=== PATIENT | female | born 1965 | race Caucasian/White ===

== ENCOUNTER 2017-01-11 13:13 | Emergency (ER) | payer SELFPAY ==
[2017-01-11] MEDS ORDERED: Dexamethasone 4 mg/ml Vial ONE (13:34)
[2017-01-11 13:45] LABS: #Basophils 0.1 thou/uL (0.0-0.2); #Eosinphils 0.2 thou/uL (0.0-0.7); #Lymphocytes 1.6 thou/uL (1.20-3.40); #Monocytes 0.5 thou/uL (0.11-0.59); #Neutrophils 4.7 thou/uL (1.40-6.50); %Eosinophils 2.8 % (0.0-10.0); %Lymphocytes 23.1 % (21.0-51.0); %Monocytes 6.9 % (0.0-10.0); %Neutrophils 66.2 % (42.0-75.0); Hemoglobin 9.2 g/dL (12.0-16.0); Mean Corpuscular HGB CONC 30.6 g/dL (32.0-36.0); Mean Corpuscular Hemoglobin 22.4 pg (27.0-31.0); Mean Corpuscular Volume 73.2 fl (81.0-99.0); Platelet Count 302 thou/uL (130-400); RBC Distribution Width 14.4 % (11.5-14.5); Red Blood Cell (RBC) Count 4.11 mill/uL (4.20-5.40); White Blood Cell (WBC) Count 7.1 thou/uL (4.8-10.8)
[2017-01-11 13:57] LABS: ALT (SGPT) 10 U/L (8-55); AST (SGOT) 13 U/L (5-34); Albumin 3.8 g/dL (3.5-5.0); Alkaline Phosphatase 60 U/L (40-150); Anion Gap 13 mmol/L (10-20); BUN (Urea Nitrogen) 6 mg/dL (7.0-18.7); Bilirubin, Total 0.3 mg/dL (0.2-1.2); Calc. Creatinine Clearance 0 mL/min (70-130); Calcium 9.2 mg/dL (7.8-10.44); Carbon Dioxide 24 mmol/L (22-29); Chloride 106 mmol/L (98-107); Estimated GFR-MDRD Greater than 90; Globulin 3.3 g/dL (2.4-3.5); Glucose 86 mg/dL (70-105); Potassium 3.9 mmol/L (3.5-5.1); Protein, Total 7.1 g/dL (6.0-8.3); Sodium 139 mmol/L (136-145)
[2017-01-11 13:59] LABS: CKMB 1.3 ng/mL (0-6.6); Troponin I Less than 0.010 ng/mL (< 0.028)
[2017-01-11 14:03] LABS: MDiff Complete? YES; Microcytosis MODERATE=15-30 cells (100X) (0-5/hpf); PLT Morphology Comment Appears Adequate
--- NOTE | 2017-01-11 21:27 | RAD ---
CHEST TWO VIEWS 01/11/17 Comparison is made with the 01/20/13 study. The heart remains normal in size and the lungs are clear. No infiltrate or effusion was seen. There is no vascular congestion or edema. The mediastinum appears normal and the trachea is midline. IMPRESSION: No acute thoracic finding. POS: HOME
== END 2017-01-11 14:19 | disposition home or self-care (01) ==
LOC: BURERS 13:13
DX: J06.9 Acute upper respiratory infection, unspecified (principal); F17.220 Nicotine dependence, chewing tobacco, uncomplicated
CPT/HCPCS: 36415; 71020; 80053; 82553; 83880; 84484; 85025; 93005; J1100; J7620

== ENCOUNTER 2020-06-04 13:11 | Emergency (ER) | payer SELFPAY | END 2020-06-04 13:42 | disposition home or self-care (01) | LOC: BURERS 13:11 | DX: R50.9 Fever, unspecified (principal); R42 Dizziness and giddiness; Z20.828 Contact with and (suspected) exposure to other viral communicable diseases; F17.220 Nicotine dependence, chewing tobacco, uncomplicated | CPT/HCPCS: 99283 ==

== ENCOUNTER 2020-12-27 23:04 | Emergency (ER) | payer SELFPAY ==
[2020-12-27 23:34] LABS: #Basophils 0.1 thou/uL (0.0-0.2); #Eosinphils 0.2 thou/uL (0.0-0.7); #Monocytes 0.5 thou/uL (0.11-0.59); #Neutrophils 3.4 thou/uL (1.40-6.50); %Basophils 0.9 % (0.0-1.0); %Eosinophils 2.2 % (0.0-10.0); %Lymphocytes 41.8 % (21.0-51.0); %Monocytes 7.6 % (0.0-10.0); %Neutrophils 47.6 % (42.0-75.0); Hemoglobin 14.6 g/dL (12.0-16.0); Mean Corpuscular HGB CONC 34.2 g/dL (32.0-36.0); Mean Corpuscular Hemoglobin 30.9 pg (27.0-31.0); Mean Corpuscular Volume 90.4 fL (78.0-98.0); Mean Platelet Volume 6.4 fL (7.4-10.4); Platelet Count 205 thou/uL (130-400); RBC Distribution Width 11.6 % (11.5-14.5); Red Blood Cell (RBC) Count 4.74 mill/uL (4.20-5.40); White Blood Cell (WBC) Count 7.1 thou/uL (4.8-10.8)
[2020-12-27 23:53] LABS: ALT (SGPT) 41 U/L (8-55); AST (SGOT) 26 U/L (5-34); Albumin 4.3 g/dL (3.5-5.0); Alkaline Phosphatase 75 U/L (40-110); Anion Gap 16 mmol/L (10-20); BUN (Urea Nitrogen) 12 mg/dL (9.8-20.1); Bilirubin, Total 0.3 mg/dL (0.2-1.2); CK (CPK) 109 U/L (29-168); Calc. Creatinine Clearance 0 mL/min (70-130); Calcium 9.3 mg/dL (7.8-10.44); Carbon Dioxide 23 mmol/L (22-29); Chloride 108 mmol/L (98-107); Glucose 108 mg/dL (70-105); Lipase 39 U/L (8-78); Potassium 3.9 mmol/L (3.5-5.1); Protein, Total 7.3 g/dL (6.0-8.3); Sodium 143 mmol/L (136-145)
[2020-12-28] MEDS ORDERED: Nitroglycerin 0.4 MG TAB 1 EACH ONE (00:39)
== END 2020-12-28 00:55 | disposition home or self-care (01) ==
LOC: BURERS 23:04
DX: R07.89 Other chest pain (principal); I10 Essential (primary) hypertension; F17.220 Nicotine dependence, chewing tobacco, uncomplicated
CPT/HCPCS: 71045; 80053; 82550; 83690; 84484; 85025; 93005

== ENCOUNTER 2021-10-11 19:06 | Emergency (ER) | payer SELFPAY ==
[2021-10-11] MEDS ORDERED: Aspirin Chewable 81 MG TAB ONE (19:19)
[2021-10-11] MEDS ORDERED: Nitroglycerin 0.4 MG TAB 1 EACH ONE ×2 (19:31)
[2021-10-11 19:33] LABS: #Basophils 0.1 thou/uL (0.0-0.2); #Eosinphils 0.1 thou/uL (0.0-0.7); #Lymphocytes 2.1 thou/uL (1.20-3.40); #Monocytes 0.5 thou/uL (0.11-0.59); #Neutrophils 3.4 thou/uL (1.40-6.50); %Basophils 1.3 % (0.0-1.0); %Eosinophils 2.3 % (0.0-10.0); %Lymphocytes 33.5 % (21.0-51.0); %Monocytes 8.2 % (0.0-10.0); %Neutrophils 54.7 % (42.0-75.0); Hemoglobin 14.1 g/dL (12.0-16.0); Mean Corpuscular HGB CONC 33.6 g/dL (32.0-36.0); Mean Corpuscular Hemoglobin 30.8 pg (27.0-31.0); Mean Corpuscular Volume 91.7 fL (78.0-98.0); Mean Platelet Volume 6.8 fL (7.4-10.4); Platelet Count 198 thou/uL (130-400); RBC Distribution Width 12.3 % (11.5-14.5); Red Blood Cell (RBC) Count 4.57 mill/uL (4.20-5.40); White Blood Cell (WBC) Count 6.1 thou/uL (4.8-10.8)
[2021-10-11 19:51] LABS: ALT (SGPT) 38 U/L (8-55); AST (SGOT) 25 U/L (5-34); Albumin 4.3 g/dL (3.5-5.0); Alkaline Phosphatase 71 U/L (40-110); Anion Gap 17 mmol/L (10-20); BUN (Urea Nitrogen) 13 mg/dL (9.8-20.1); Bilirubin, Total 0.4 mg/dL (0.2-1.2); Calc. Creatinine Clearance 0 mL/min (70-130); Calcium 9.2 mg/dL (7.8-10.44); Carbon Dioxide 20 mmol/L (22-29); Chloride 107 mmol/L (98-107); Globulin 3.3 g/dL (2.4-3.5); Glucose 125 mg/dL (70-105); Lipase 48 U/L (8-78); Potassium 4.1 mmol/L (3.5-5.1); Protein, Total 7.6 g/dL (6.0-8.3); Sodium 140 mmol/L (136-145)
[2021-10-11] MEDS ORDERED: Ondansetron PF 4 MG/2 ML Vial ONE (20:18)
[2021-10-11] MEDS ORDERED: Fentanyl 100 MCG/2 ML VIAL ONE (20:37)
[2021-10-12 01:42] LABS: SARS-CoV-2 NAA Rapid Test Not Detected (NotDetected)
== END 2021-10-11 21:15 | disposition short-term general hospital (02) ==
LOC: BURERS 19:06
DX: R07.89 Other chest pain (principal); R10.811 Right upper quadrant abdominal tenderness; R11.0 Nausea; F17.220 Nicotine dependence, chewing tobacco, uncomplicated; Z20.822 Contact with and (suspected) exposure to COVID-19
CPT/HCPCS: 71045; 80053; 83690; 83880; 84484; 85025; 85379; 93005; 96374; 96375; J2405; J3010; U0002; U0003; U0005

== ENCOUNTER 2022-07-08 10:17 | Emergency (ER) | payer OTHER, SELFPAY ==
[2022-07-08] MEDS ORDERED: Boostrix 0.5 ML (Tdap) VIAL (>/=7 yrs of age) ONE (11:09)
[2022-07-08] MEDS ORDERED: Clindamycin/D5W 600 mg/50 ml Premix Bag ONE (11:09)
[2022-07-08] MEDS ORDERED: Doxycycline 100 MG CAP ONE (11:09)
[2022-07-08] MEDS ORDERED: Clindamycin 150 MG CAP ONE (11:10)
== END 2022-07-08 11:45 | disposition home or self-care (01) ==
LOC: BURERS 10:17
DX: S51.851A Open bite of right forearm, initial encounter (principal); S81.851A Open bite, right lower leg, initial encounter; Z23 Encounter for immunization; W55.01XA Bitten by cat, initial encounter
CPT/HCPCS: 90471; 90715; J3490

== ENCOUNTER 2024-01-02 01:43 | Emergency (ER) | payer SELFPAY ==
[2024-01-02] MEDS ORDERED: Ketorolac Tromethamine 60 MG/2 ML VIAL ONE (02:11)
[2024-01-02] MEDS ORDERED: Clindamycin 150 MG CAP ONE (02:11)
== END 2024-01-02 02:35 | disposition home or self-care (01) ==
LOC: BURERS 01:43
DX: K11.20 Sialoadenitis, unspecified (principal)
CPT/HCPCS: 96372; 99283; J1885